=== PATIENT | male | born 1980 | race Caucasian/White ===

== ENCOUNTER 2017-08-03 22:46 | Inpatient (IN) | payer BC ==
[~2017-08-03] VITALS: Ht 172.7 cm; Wt 90.6 kg
[2017-08-03 23:22] LABS: MCH 32.5 PG (29.0-34.0); MCHC 34.9 G/DL (30.0-36.0); MCV 93.2 FL (86-99); MEAN PLAT.VOLUME 10.5 uM^3 (9.0-12.4); PLATELET COUNT 199 K/uL (156-360); RBC DIS.WIDTH-CV 13.7 % (11.8-14.6); RBC DIS.WIDTH-SD 46.7 % (39-53); RED BLOOD COUNT 4.83 M/uL (4.00-5.50); WHITE BLOOD COUNT 13.5 K/uL (4.1-10.2)
[2017-08-03 23:30] LABS: CHLORIDE 107 mEq/L (99-109); POTASSIUM 3.8 mEq/L (3.7-5.4); SODIUM 139 mEq/L (136-147)
[2017-08-03 23:33] LABS: GLUCOSE 159 mg/dL (70-99)
[2017-08-03 23:34] LABS: ANION GAP 9 MEQ/L (2-14)
[2017-08-03 23:35] LABS: TOTAL BILIRUBIN 1.2 mg/dL (0.0-1.0)
[2017-08-03 23:36] LABS: ALKALINE PHOSPHATASE 46 IU/L (3-129); GFR ESTIMATE (CALCULATED) > 59 mL/min/
[2017-08-03 23:38] LABS: UREA NITROGEN (BUN) 17 mg/dL (9-23)
[2017-08-03 23:40] LABS: LIPASE 930 U/L (1.0-51.0)
[2017-08-04 00:45] LABS: ADD MIUA? YES; BILIRUBIN NEGATIVE; BLOOD NEGATIVE; COLOR YELLOW ((YELLOW)); GLUCOSE (STRIP) NEGATIVE; KETONES NEGATIVE; LEUKOCYTES NEGATIVE; NITRITE NEGATIVE; PROTEIN (STRIP) NEGATIVE; SPECIFIC GRAVITY 1.029 (1.000-1.030)
[2017-08-04 00:52] LABS: BACTERIA 1+ /HPF; EPITHELIAL CELLS NONE SEEN /HPF; MUCUS TRACE /LPF; UCUL ADDED? NO; WHITE BLOOD CELLS 0-5 /HPF (0-5)
[2017-08-04] MEDS ORDERED: [UNRECOGNIZED DRUG - OTHER] PO (01:01)
[2017-08-04] MEDS ORDERED: MULTI VITAMIN1 EACH PO (01:02)
[2017-08-04 02:08] LABS: SERUM ETHYL ALCOHOL < 10 mg/dL
[2017-08-04 03:04] VITALS: BP 147/67
[2017-08-04 04:13] VITALS: BP 106/55
[2017-08-04 06:12] LABS: POINT-OF-CARE METER ID UU13113725
[2017-08-04 07:48] VITALS: BP 108/57
[2017-08-04 10:48] LABS: EOSINOPHIL (%) 7.2 % (0-5); EOSINOPHIL COUNT 0.4 K/uL (0-0.3); HEMATOCRIT 43.5 % (38.0-50.0); IMMATURE GRANULOCYTE (%) 0.2 % (0.0-0.7); INSTRUMENT ABS NEUTROPHIL CT 3.2 K/uL; LYMPHOCYTE COUNT 1.5 K/uL (1.0-2.8); MCH 31.9 PG (29.0-34.0); MCHC 33.8 G/DL (30.0-36.0); MCV 94.4 FL (86-99); MEAN PLAT.VOLUME 10.5 uM^3 (9.0-12.4); MONOCYTE (%) 6.6 % (3-12); MONOCYTE COUNT 0.4 K/uL (0-0.8); NEUTROPHIL (%) 57.8 % (45-76); NEUTROPHIL COUNT 3.2 K/uL (1.8-6.4); PLATELET COUNT 141 K/uL (156-360); RBC DIS.WIDTH-CV 14.1 % (11.8-14.6); RBC DIS.WIDTH-SD 48.7 % (39-53); RED BLOOD COUNT 4.61 M/uL (4.00-5.50); WHITE BLOOD COUNT 5.6 K/uL (4.1-10.2)
[2017-08-04 11:08] LABS: ALKALINE PHOSPHATASE 32 IU/L (3-129); ANION GAP 4 MEQ/L (2-14); CHLORIDE 108 MEQ/L (99-109); DIRECT BILIRUBIN 0.2 mg/dL (0.0-0.3); GFR ESTIMATE (CALCULATED) > 59 mL/min/; LIPASE 88 U/L (1.0-51.0); POTASSIUM 4.5 MEQ/L (3.7-5.4); SAMPLE HEMOLYSIS CHECK 0; SAMPLE ICTERIC CHECK 0; SAMPLE LIPEMIA CHECK 0; SODIUM 141 MEQ/L (136-147); TOTAL BILIRUBIN 0.8 MG/DL (0.0-1.0); UREA NITROGEN (BUN) 16 mg/dL (9-23)
[2017-08-04 11:09] LABS: GLUCOSE 91 mg/dL (70-99)
[2017-08-04 11:38] LABS: POINT-OF-CARE METER ID UU13113774
[2017-08-04 12:23] LABS: GAMMA-GT 84 IU/L (4-73)
[2017-08-04 15:17] VITALS: BP 115/53
[2017-08-04 18:02] LABS: POINT-OF-CARE METER ID UU13113774
[2017-08-05 00:18] VITALS: BP 124/64
[2017-08-05 05:51] LABS: EOSINOPHIL (%) 7.4 % (0-5); EOSINOPHIL COUNT 0.3 K/uL (0-0.3); HEMATOCRIT 42.9 % (38.0-50.0); IMMATURE GRANULOCYTE (%) 0.2 % (0.0-0.7); INSTRUMENT ABS NEUTROPHIL CT 2.2 K/uL; LYMPHOCYTE COUNT 1.6 K/uL (1.0-2.8); MCH 31.9 PG (29.0-34.0); MCHC 33.8 G/DL (30.0-36.0); MCV 94.3 FL (86-99); MEAN PLAT.VOLUME 10.1 uM^3 (9.0-12.4); MONOCYTE (%) 5.8 % (3-12); MONOCYTE COUNT 0.3 K/uL (0-0.8); NEUTROPHIL (%) 49.5 % (45-76); NEUTROPHIL COUNT 2.2 K/uL (1.8-6.4); PLATELET COUNT 109 K/uL (156-360); RBC DIS.WIDTH-CV 13.9 % (11.8-14.6); RBC DIS.WIDTH-SD 48.4 % (39-53); RED BLOOD COUNT 4.55 M/uL (4.00-5.50); WHITE BLOOD COUNT 4.5 K/uL (4.1-10.2)
[2017-08-05 06:19] LABS: ALKALINE PHOSPHATASE 31 IU/L (3-129); ANION GAP 5 MEQ/L (2-14); CHLORIDE 106 MEQ/L (99-109); GFR ESTIMATE (CALCULATED) > 59 mL/min/; GLUCOSE 92 mg/dL (70-99); LIPASE 53 U/L (1.0-51.0); POTASSIUM 4.1 MEQ/L (3.7-5.4); SAMPLE HEMOLYSIS CHECK 0; SAMPLE ICTERIC CHECK 0; SAMPLE LIPEMIA CHECK 0; SODIUM 140 MEQ/L (136-147); UREA NITROGEN (BUN) 12 mg/dL (9-23)
[2017-08-05 08:04] VITALS: BP 114/55
[2017-08-05 10:06] LABS: INTER. NORMALIZED RATIO 1.1; PROTHROMBIN TIME 12.5 SEC (10.2-12.9)
[2017-08-05] MEDS ORDERED: AUGMENTIN875 MG PO (10:59)
== END 2017-08-05 11:58 | disposition home or self-care (01) | DRG 439 ==
LOC: EME 22:46 → 5EAST 08-04 01:56 → EDOF 08-04 01:56 → ENRESERV 08-04 01:57 → 5EAST 08-04 02:39
PROVIDERS: Internal Medicine; Physician Assistant; Physician Assistant Medical
DX: K85.90 Acute pancreatitis without necrosis or infection, unspecified (principal); K70.30 Alcoholic cirrhosis of liver without ascites; B19.20 Unspecified viral hepatitis C without hepatic coma; K80.10 Calculus of gallbladder with chronic cholecystitis without obstruction; R16.1 Splenomegaly, not elsewhere classified; R00.1 Bradycardia, unspecified; R55 Syncope and collapse; R42 Dizziness and giddiness; Z80.0 Family history of malignant neoplasm of digestive organs; Z87.891 Personal history of nicotine dependence
CPT/HCPCS: 74177; 74183; 76705; 80048; 80053; 80076; 81003; 82948; 82977; 83605; 83690; 85025; 85027; 85610; 87040; 99281; 99285; C9113; G0480; J0696; J1200; J1815; J1885; J2270; J2405; J3010; J7030; J7120; S0028; S0030